=== PATIENT | female | born 1985 | race Caucasian/White ===

== ENCOUNTER → 2017-06-08 | Outpatient (CLI) | payer OTHER | LOC: FIMAGING 13:39 | PROVIDERS: ATTEND Family Medicine | DX: O26.891 Other specified pregnancy related conditions, first trimester (principal); Z3A.01 Less than 8 weeks gestation of pregnancy ==

== ENCOUNTER 2017-08-27 05:53 | Day surgery (SDC) | payer OTHER ==
[2017-08-27 06:42] LABS: % IMMATURE GRANULYOCYTES 0.2 % (0.0-1.1); ABSOLUTE IMMATURE GRANULOCYTES 0.01 10^3/uL (0.00-0.10); ADD DIFF? NO; ADD MORPH? NO; ADD SCAN? NO; ATYPICAL LYMPHOCYTE FLAG 10 (0-99); FRAGMENT RBC FLAG 20 (0-99); HEMATOCRIT 40.4 % (38.0-47.0); HEMOGLOBIN 13.9 g/dL (12.6-16.3); LEFT SHIFT FLG 0 (0-99); LIPEMIA HEMOLYSIS FLAG 90 (0-99); MEAN CELL HEMOGLOBIN 32.9 pg (27.9-34.1); MEAN CELL HEMOGLOBIN CONCENTR. 34.4 g/dL (32.4-36.7); MEAN CELL VOLUME 95.5 fL (81.5-99.8); MEAN PLATELET VOLUME 8.9 fL (8.7-11.7); PLATELET CLUMPS FLAG 10 (0-99); PLATELET COUNT 307 10^3/uL (150-400); RED BLOOD CELL COUNT 4.23 10^6/uL (4.18-5.33)
[2017-08-27] MEDS ORDERED: DOXYCYCLINE HYCLATE 100 MG CAP/TAB PO ONE ×2 (07:00→09:00)
[2017-08-27] MEDS ORDERED: MIDAZOLAM 2 MG/2 ML VIAL IVP ONE (07:04)
[2017-08-27] MEDS ORDERED: HYDROmorphONE/DILAUDID 1 MG/ML INJ IVP PRN (07:04)
[2017-08-27] MEDS ORDERED: fentaNYL 100 MCG/2 ML INJ IVP PRN (07:04)
[2017-08-27] MEDS ORDERED: ONDANSETRON 4 MG/2 ML VIAL IVP PRN (07:04)
[2017-08-27] MEDS ORDERED: ALBUTEROL 3 ML DEYVIAL IH PRN (07:04)
[2017-08-27] MEDS ORDERED: NALOXONE HCL 0.4 MG/ML INJ IVP PRN (07:04)
--- NOTE | 2017-08-27 07:07 | PDANEPAE ---
ANE History of Present Illness D&C ANE Past Medical History - Cardiovascular History Hx Hypertension: No Hx Arrhythmias: No - Pulmonary History Hx COPD: No Hx Asthma/Reactive Airway Disease: No Hx Sleep Apnea: No - Neurologic History Hx Cerebrovascular Accident: No Hx Seizures: Yes Neurologic History Comment: Epilepsy - Endocrine History Hx Diabetes: No Hypothyroid: No Obesity: no - Renal History Hx Renal Disorders: No - Liver History Hx Hepatic Disorders: No ANE Review of Systems Review of systems is: negative Review of Systems: - Exercise capacity METS (RN): 4 METS ANE Patient History - Allergies Allergies/Adverse Reactions: Penicillins Allergy (Verified 08/27/17 06:03) - Smoking Hx Smoking Status: Never smoked ANE Labs/Vital Signs - Labs Result Diagrams: 08/27/17 06:00 - Vital Signs Height: 165.1 cm Weight: 57.606 kg ANE Physical Exam - Airway Neck exam: FROM Mallampati Score: Class 2 Mouth exam: normal dental/mouth exam - Pulmonary Pulmonary: clear to auscultation - Cardiovascular Cardiovascular: regular rate and rhythym - ASA Status ASA Status: II ANE Anesthesia Plan Anesthesia Plan: GA w LMA
[2017-08-27] MEDS ORDERED: MISOPROSTOL 200 MCG TAB ONE (07:12)
[2017-08-27] MEDS ORDERED: fentaNYL 100 MCG/2 ML INJ ONE (07:28)
[2017-08-27] MEDS ORDERED: PROPOFOL 200 MG/20 ML VIAL ONE (07:29)
[2017-08-27] MEDS ORDERED: LIDOCAINE 2% 5 ML SDV ONE (07:29)
[2017-08-27] MEDS ORDERED: ONDANSETRON 4 MG/2 ML VIAL ONE (07:31)
[2017-08-27] MEDS ORDERED: DEXAMETHASONE 4 MG/ML VIAL ONE ×2 (07:31)
[2017-08-27] MEDS ORDERED: epHEDrine SULFATE 10 MG/ML SYR ONE (07:44)
--- NOTE | 2017-08-27 13:08 | GOP ---
[f rep st] OPERATIVE REPORT DATE OF OPERATION: 08/27/2017 SURGEON: Qi Johnston DO MINE SAFETY ENGINEER: None. ANESTHESIA: LMA. ANESTHESIOLOGIST: Dr. Lamas. PREOPERATIVE DIAGNOSIS: Missed at 6-7 weeks gestation, failed medical treatment with retained products of conception. POSTOPERATIVE DIAGNOSIS: Missed at 6-7 weeks gestation, failed medical treatment with retained products of conception. PROCEDURE PERFORMED: Suction dilatation and curettage. FINDINGS: Uterus was gently sounded to 7-8 cm. Cervical os is closed. No vaginal bleeding or clots noted in the vagina. Uterus was dilated up to a #7.5 Armando dilator, and a curved 7 mm suction curette was used. Minimal products of conception were noted. Procedure was done under ultrasound guidance. No bleeding was noted at the end of the procedure. The patient is A positive. SPECIMENS: Products of conception. ESTIMATED BLOOD LOSS: Less than 50 cc. INDICATIONS: Patient is a 32-year-old, 1, para 0 with date of conception 05/15/2017, who presented to the office for initial obstetric visit. She had multiple ultrasounds done that were consistent with a missed AB. The patient was given condolences. Treatment options were presented to her and she opted for medical management with Cytotec. She did Cytotec on two separate occasions with heavy vaginal bleeding and cramping. She feels like she passed most of the products. She had a followup ultrasound about 2 weeks ago that showed a thickened endometrium, questionable clot versus retained products. Patient states no vaginal bleeding at this time. Just some old blood and spotting, mostly when she wipes. Denies any cramping. The patient was given options and, due to the ultrasound findings and failed medical treatment, was offered surgical management with a suction D and C. Patient agrees with the plan. Surgical consents were done at the bedside. Reviewed risks, benefits, and alternatives of the procedure with the patient including, but not limited to , bleeding, infection, and risk of uterine perforation. The patient understands all risks at this time and wants to proceed with surgery. Patient was properly consented. DESCRIPTION OF PROCEDURE: Patient was taken to the operating room where anesthesia was obtained without difficulty. The patient was given antibiotics relationship banker to operating room, 100 mg of doxycycline orally. She was positioned in dorsal lithotomy position, prepped and draped in normal sterile fashion. Once the anesthetic was found to be adequate, an open-ended speculum was placed in the vagina. The anterior lip of the cervix was grasped with an Allis clamp. The uterus was then gently sounded to 7 cm, and the cervix dilated up to a #7.5 Armando dilator. A size 7 mm curved suction curette was then used. It was connected to suction, and placed gently up inside the uterus, and a suction curette was performed. Three passes were made with suction curettage to remove products of . This was done under ultrasound guidance, with minimal tissue noted. Next, we turned our attention to a sharp curettage. This was performed until a gritty texture was noted in all 4 quadrants of the uterus, and again this was done under ultrasound guidance. We then passed the suction curette one last time to remove any remaining products of . All instruments were then removed from the vagina. Hemostasis was noted. The patient tolerated the procedure well. No complications. All instrument, sponge counts were correct x2. The patient was then awakened and taken to PACU in stable condition, where she is to receive 200 mg of doxycycline orally. INTRAVENOUS FLUIDS: 700 cc LR. URINE OUTPUT: Patient emptied bladder prior to the procedure. COMPLICATIONS: None. /[id number]/MODL MTDD
== END 2017-08-27 09:50 | disposition home or self-care (01) ==
LOC: FOBOP 05:53
PROVIDERS: ATTEND Obstetrics & Gynecology
DX: O02.1 Missed abortion (principal); O73.1 Retained portions of placenta and membranes, without hemorrhage; Z3A.01 Less than 8 weeks gestation of pregnancy
CPT/HCPCS: J1100; J2250; J2405; J2704; J3010